=== PATIENT | female | born 1955 | race Caucasian/White ===

== ENCOUNTER 2019-04-11 12:17 | Emergency (ER) | payer BC, MEDICARE ==
[~2019-04-11] VITALS: Ht 157.5 cm; Wt 45.0 kg
[~2019-04-11 12:17] MED LIST: ALBU8.5H8 INH; AZEL137S4 BOTHNARES; CYAN10006 IM; DICL100G30 TD; ESTR10TA4; ESZO1TAB8 PO; FENT1PAT7 TD; FLO44IN IH; FLUT16SP2 BOTHNARES; FOLI1TAB16 PO; HYDR-4353 PO; LIDO700A5 TOP; METH1TAB32 PO; PHEN-716 PO; PREVCR VG; PSEU120T56 PO; SUCR1ORA2 PO
[2019-04-11] MEDS ORDERED: normal saline 1000ml 1,000 ML IV ONE (14:05)
[2019-04-11] MEDS ORDERED: fentaNYL/PF 50MCG/1 ML 2ML syringe IV ONE (14:05)
[2019-04-11] MEDS ORDERED: ondansetron/PF 4mg/2ml inj IV ONE (14:05)
[2019-04-11 15:33] LABS: BASOPHILS % (AUTO) 0.3 % (0-1); EOSINOPHILS % (AUTO) 0.7 % (0-6); HEMATOCRIT 27.4 % (35.0-45.0); HEMOGLOBIN 8.6 g/dl (12.0-16.0); LYMPHOCYTES # (AUTO) 1.4 X10'3 (1.1-4.8); LYMPHOCYTES % (AUTO) 40.4 % (21-51); MEAN CORPUSCULAR HEMOGLOBIN 37.8 PG (27.0-31.0); MEAN CORPUSCULAR HGB CONC 31.2 g/dL (33.0-36.5); MEAN CORPUSCULAR VOLUME 121.1 FL (78-98); MEAN PLATELET VOLUME 6.5 FL (7.4-10.4); MONOCYTES # (AUTO) 0.2 X10'3 (0-0.9); NEUTROPHILS # (AUTO) 1.9 X10'3 (1.8-7.7); NEUTROPHILS % (AUTO) 53.6 % (42-75); PLATELET COUNT 157 X10'3 (140-440); RED BLOOD COUNT 2.26 X10'6 (4.20-5.60); RED CELL DISTRIBUTION WIDTH 14.4 % (11.5-14.5); WHITE BLOOD COUNT 3.5 X10'3 (4.5-11.0)
[2019-04-11 15:49] LABS: ALANINE AMINOTRANSFERASE 80 U/L (12-78); ALBUMIN 3.6 G/DL (3.4-5.0); ALBUMIN/GLOBULIN RATIO 1.2 (1.1-1.5); ALKALINE PHOSPHATASE 75 IU/L (46-116); ANION GAP 7 (8-16); ASPARTATE AMINO TRANSFERASE 51 U/L (10-37); BILIRUBIN,TOTAL 0.5 MG/DL (0.1-1.0); BLOOD UREA NITROGEN 15 MG/DL (7-18); BUN/CREATININE RATIO 15.6 (6.6-38.0); CALCIUM 8.2 MG/DL (8.5-10.1); CHLORIDE 113 MMOL/L (99-107); CREATININE 0.96 MG/DL (0.40-0.90); GLUCOSE 79 MG/DL (70-104); POTASSIUM 4.3 MMOL/L (3.5-5.1); SODIUM 141 MMOL/L (135-145); TOTAL CARBON DIOXIDE 20.9 MMOL/L (24-32); TOTAL PROTEIN 6.5 G/DL (6.4-8.2); eGFR 58 ML/MIN
--- NOTE | 2019-04-11 15:59 | NUR ---
Break nurse for primary nurse. Pt reports chronic back pain 9/10, bladder pain 8/10 after fentanyl pain medication. Pt has stable vitals. Pt reports she is on home oxygen and runs low SpO2.
[2019-04-11 16:13] LABS: URINE HCG NEGATIVE (NEG)
[2019-04-11 16:15] LABS: CLARITY,URINE CLEAR (Clear); GLUCOSE, URINE 100 mg/dl (Neg); KETONES,URINE NEGATIVE (Neg); LEUKOCYTE ESTERASE ,URINE TRACE (Neg); OCCULT BLOOD,URINE NEGATIVE (Neg); PH,URINE 5.5 (4.8-8.0); PROTEIN,URINE 30 mg/dl (Neg)
[2019-04-11 16:22] LABS: COLOR,URINE DARK YELLOW (Yellow); UA COLLECTION TYPE CLN CATCH MIDSTREAM
[2019-04-11 16:23] LABS: NITRITES, URINE NEGATIVE (Neg)
[2019-04-11 16:24] LABS: BACTERIA,URINE NONE SEEN /HPF (Neg); RBC,URINE NONE SEEN /HPF (0-2); SQUAMOUS EPITHELIAL CELL,UR FEW /LPF (FEW)
[2019-04-11] MEDS ORDERED: CEPH500C5 PO (18:52)
--- NOTE | 2019-04-11 18:52 | NUR ---
pt expressed that she is very uncomfortable that she would like to be treated for what she was sebnt here for she has been here since about one this aftrenoon . pt rates her pain 8/10 states that the fentynal did not have relief
--- NOTE | 2019-04-11 19:14 | NUR ---
went to room to discharge patient pt very frustrated that she has been here since 1230 and has not recievd her iv abx. PT VERY RUDE AND INAPPROPIRATE IN HOW HE CHOOSES T REPLY AND RESPOND TO EDUCATION ON PO ABX KEFLEX. GUMAROD OF PT ACCUSING ME OF LOOSING URINE SPEICAMN AND NOT HAVING THE PRIMARY CARE PROVIDER ON THE CHART. INFORMED PT AND HER THAT I HAVE RESUMED CARE ONLY AT 1830 AND WAS NOT THE STAFF THAT COLLECTED THE SPECIMAN. PT STASTED
--- NOTE | 2019-04-11 19:17 | NUR ---
STATES THAT I AM NOT SOLVONG THERE PROBLEM AND THAT I HAVE NOT ANSWERED THEIR QUESTIONS ON WHY THEY ARE NOT SOLVING WHAT IS WRONG WITH HIS . NOTIFED JENNYFER ALVARADO CHARGE OF PT SPOUSES DISATISFACTION THE PT AND HER AT THIS TIME WILL NOT SIGN DISCHARGED PAPER WORK
[2019-04-11 19:35] VITALS: BP 118/92
== END 2019-04-11 19:38 | disposition home or self-care (01) ==
LOC: ER 12:18
DX: N39.0 Urinary tract infection, site not specified (principal); G89.29 Other chronic pain; E53.8 Deficiency of other specified B group vitamins; Z98.84 Bariatric surgery status; Z79.899 Other long term (current) drug therapy; Z88.1 Allergy status to other antibiotic agents; Z88.6 Allergy status to analgesic agent; Z88.8 Allergy status to other drugs, medicaments and biological substances
CPT/HCPCS: 36415; 71045; 74176; 80053; 81001; 81025; 83605; 84145; 85025; 87040; 87088; 93005; 96374; 96375; 99284; J2405; J3010; J7030